=== PATIENT | female | born 1990 | race Caucasian/White ===

== ENCOUNTER → 2017-01-13 | Outpatient (CLI) | payer SELFPAY ==
[2016-05-31 13:20] VITALS: BP 149/88
[~2017-01-13] MED LIST: CITA10TA8 PO; IPRA3AMP NEB; MONT10TA9 PO; PRED20TA PO; QUET50TA5 PO
--- NOTE | 2017-01-13 12:08 | RAD ---
Abdomen, 2 views, 01/13/2017: History: Abdominal pain, nausea Gas is present in large and small bowel in a nonspecific pattern. No free air seen in the abdomen. There is no evidence of organomegaly. Surgical clips are present in the right upper quadrant compatible with a previous cholecystectomy. Lower pelvic calcifications are compatible phleboliths. IMPRESSION: No acute abdominal abnormality is detected.
== END | disposition home or self-care (01) ==
LOC: DXRADRC 09:12
PROVIDERS: ATTEND Physician Assistant
DX: R10.9 Unspecified abdominal pain (principal); R11.0 Nausea; Z90.49 Acquired absence of other specified parts of digestive tract
CPT/HCPCS: 74020

== ENCOUNTER 2017-09-21 15:24 | Emergency (ER) | payer BC, OTHER ==
[~2017-09-21] VITALS: Ht 162.6 cm; Wt 104.0 kg
[2017-09-21] MEDS ORDERED: ONDANSETRON PF 4 MG/2 ML VIAL. IV ONE (16:15)
[2017-09-21] MEDS ORDERED: PYRI25TA3 PO (16:54)
--- NOTE | 2017-09-21 16:54 | PHYS DOC ---
Past History Past Medical History: No Pertinent History Past Surgical History: Appendectomy, Cholecystectomy Alcohol Use: None Drug Use: None Adult General Chief Complaint Chief Complaint: VOMITING IN HPI HPI Patient is a 26 year old F who presents with nausea and vomiting over the past 24 hours. Rosalia is 13 weeks with her first child. She is on medications. She has no current medical conditions other than . She denies urinary difficulty, vaginal discharge or bleeding. She denies pain or any other associated symptoms. She denies any exacerbating or alleviating factors. Review of Systems Review of Systems Constitutional: Denies fever or chills [] Eyes: Denies change in visual acuity, redness, or eye pain [] HENT: Denies nasal congestion or sore throat [] Respiratory: Denies cough or shortness of breath [] Cardiovascular: No additional information not addressed in HPI [] GI: Denies abdominal pain bloody stools or diarrhea [] : Denies dysuria or hematuria [] Musculoskeletal: Denies back pain or joint pain [] Integument: Denies rash or skin lesions [] Neurologic: Denies headache, focal weakness or sensory changes [] Endocrine: Denies polyuria or polydipsia [] All other systems were reviewed and found to be within normal limits, except as documented in this note. Family History Family History No Pertinent family medical history was reported Current Medications Current Medications Current Medications Medications (Trade) Dose Ordered Sig/Galo Start Time Stop Time Status Last Admin Dose Admin Ondansetron HCl (Zofran) 4 mg 1X ONCE 09/21/17 16:15 09/21/17 16:16 DC 09/21/17 16:15 4 MG Allergies Allergies Allergies Coded Allergies Type Severity Reaction Last Updated Verified No Known Drug Allergies 05/31/16 No Physical Exam Physical Exam Constitutional: Well developed, well nourished, no acute distress, non-toxic appearance. [] HENT: Normocephalic, atraumatic, Eyes: EOMI, conjunctiva normal, no discharge. [] Neck: Normal range of motion, no tenderness, supple, no stridor. [] Cardiovascular:Heart rate regular rhythm, Lungs & Thorax: Bilateral breath sounds clear to auscultation [] Abdomen: Bowel sounds normal, soft, no tenderness, no masses, no pulsatile masses. [] Gravid Skin: Warm, dry, no erythema, no rash. [] Extremities: No tenderness, no cyanosis, no clubbing, ROM intact, no edema. [] Neurologic: Alert and oriented X 3, normal motor function, normal sensory function, no focal deficits noted. [] Psychologic: Affect normal, judgement normal, mood normal. [] Current Patient Data Vital Signs Vital Signs Date Time Temp Pulse Resp B/P (MAP) Pulse Ox O2 Delivery O2 Flow Rate FiO2 09/21/17 15:39 98.4 90 22 99 EKG EKG [] Radiology/Procedures Radiology/Procedures [] Course & Med Decision Making Course & Med Decision Making Pertinent Labs and Imaging studies reviewed. (See chart for details) [] Dragon Disclaimer Dragon Disclaimer This electronic medical record was generated, in whole or in part, using a voice recognition dictation system. Departure Departure: Impression: Primary Impression: Hyperemesis gravidarum Disposition: 01 HOME, SELF-CARE Condition: STABLE Referrals: SYDNEE MANZO (PCP) Patient Instructions: Hyperemesis Gravidarum Additional Instructions: Rosalia was seen in the emergency department for nausea and vomiting. No emergency medical condition was found on history or physical exam. She was given IV fluids and nausea medication with good improvement in her symptoms. She was able tolerate fluids by mouth. She is given a prescription for nausea medication and advised follow up with her primary care doctor as needed for further management. Scripts Pyridoxine Hcl (PYRIDOXINE HCL) 25 Mg Tablet 25 MG PO TID Y for NAUSEA for 7 Days, #21 TAB Prov: DA ROBLES MD 09/21/17 DA ROBLES MD Sep 21, 2017 16:54
[2017-09-21 16:59] VITALS: BP 134/62
[2017-09-21] MEDS ORDERED: IV NORMAL SALINE 1,000ML 1,000 ML IV ONE (17:00)
== END 2017-09-21 17:20 | disposition home or self-care (01) ==
LOC: ER 15:24
DX: O21.0 Mild hyperemesis gravidarum (principal); Z3A.13 13 weeks gestation of pregnancy
CPT/HCPCS: 96374; 99284; J2405; J7030

== ENCOUNTER → 2019-01-15 | Outpatient (CLI) | payer BC ==
[~2019-01-15] MED LIST changes: -IPRA3AMP NEB; +IPRA3AMP29 NEB; +MONT10TA80 PO; -MONT10TA9 PO; +PYRI25TA3 PO
--- NOTE | 2019-01-15 11:53 | RAD ---
Thyroid ultrasound 01/15/2019 INDICATION: Abnormal thyroid labs. COMPARISON STUDY: None. Discussion: Ultrasound evaluation of the thyroid gland was performed. Static images are submitted to PACS. The right thyroid measures 5.1 x 1.6 x 1.3 cm. Left thyroid measures 4.7 x 1.9 x 1.4 cm. Thyroid isthmus measures 5 mm in thickness. Within the inferior aspect of the left thyroid gland there is a 7 mm anechoic simple appearing nodule. Within the inferior pole the right thyroid gland, or body add there is an 8 mm homogenous hypoechoic nodule. No internal calcification is seen. No internal blood flow is identified on color Doppler imaging. IMPRESSION: 1. 8 mm hypoechoic nodule, either within the inferior right thyroid or abutting it. Consider 3-6 month follow-up exam to ensure stability. Clinical correlation with the described laboratory abnormality is recommended. If the patient is hyperthyroid, or there is elevated calcium or other clinical concern for parathyroid adenoma, nuclear medicine evaluation may be helpful. 2. 7 mm prominently anechoic thyroid nodule, inferior left thyroid gland. 2015 [place] [employer] guidelines for assessment of thyroid nodules based on Sonographic pattern On a thyroid ultrasound, a nodule is classified into one of five categories: benign pattern: (0% risk): no biopsy -completely cystic nodules with well-defined branch very low suspicion pattern (<3% risk): biopsy if ?2 cm (or ultrasound observation) - spongiform nodules and nodules with interspersed cystic spaces, without any of the features in more suspicious patterns low suspicion pattern (5-10% risk): biopsy if ?1.5 cm -isoechoic or hyperechoic nodule -partially cystic nodule with a peripheral solid component -none of the following features: microcalcifications (see other points below) irregular margins extrathyroidal extension taller than wide intermediate suspicion pattern (10-20% risk): biopsy if ?1 cm -hypoechoic solid nodule with smooth margins -none of the following features: microcalcifications (see other points below) irregular margins extrathyroidal extension taller than wide high suspicion pattern (>70-90% risk): biopsy if ?1 cm -solid hypoechoic nodule (or solid hypoechoic component of a partially cystic nodule), with at least one of these features: microcalcifications irregular margins (infiltrative, microlobulated) extrathyroidal extension taller than wide rim calcifications with an extrusive soft tissue component lymphadenopathy Electronically signed by: Luis Angel Odom MD (01/15/2019 11:50 AM) [id number]
== END | disposition home or self-care (01) ==
LOC: US 10:51
DX: E04.1 Nontoxic single thyroid nodule (principal)
CPT/HCPCS: 76536